=== PATIENT | female | born 2005 | race Two or more races ===

== ENCOUNTER → 2025-03-07 | Outpatient (REF) | payer OTHER | LOC: M PLALAB 13:46 | PROVIDERS: ATTEND Obstetrics & Gynecology | DX: Z53.9 Procedure and treatment not carried out, unspecified reason (principal) ==

== ENCOUNTER → 2025-03-08 | Outpatient (CLI) | payer OTHER ==
[2025-03-08 13:45] LABS: PLATELET COUNT, AUTOMATED 212 10^3/uL (150-450)
[2025-03-08 14:19] LABS: GLUCOSE CHALLENGE TEST 1 HOUR 90 MG/DL (LESS THAN 140)
[2025-03-08 14:48] LABS: HIV 1&2 SCREEN NEGATIVE (NEGATIVE)
[2025-03-08 14:56] LABS: HEPATITIS C VIRUS ABY INDEX 0.04 INDEX (<0.8)
[2025-03-08 15:02] LABS: Trichomonas vaginalis (AMP) NOT DETECTED (NEGATIVE)
[2025-03-08 15:26] LABS: GC DNA AMPLIFICATION NEGATIVE (NEGATIVE)
== END ==
LOC: M PLALAB 10:43
PROVIDERS: ATTEND Advanced Practice Midwife
DX: Z34.83 Encounter for supervision of other normal pregnancy, third trimester (principal)

== ENCOUNTER → 2025-04-19 | Outpatient (REF) | payer OTHER | LOC: M SFHCWAGY 15:02 | PROVIDERS: ATTEND Nurse Practitioner Family | DX: Z34.93 Encounter for supervision of normal pregnancy, unspecified, third trimester (principal); Z3A.36 36 weeks gestation of pregnancy ==

== ENCOUNTER 2025-05-12 21:16 | Outpatient (CLI) | payer OTHER ==
[2025-05-12 21:38] VITALS: BP 103/64
[2025-05-12] MEDS ORDERED: PRENTAB9 PO (22:12)
[2025-05-12] MEDS ORDERED: HOME MED LIST COMPLETE! XX SCH (22:15)
== END 2025-05-13 00:15 | disposition home or self-care (01) ==
LOC: M LDO 21:16
PROVIDERS: ATTEND Advanced Practice Midwife
DX: O47.1 False labor at or after 37 completed weeks of gestation (principal); Z3A.39 39 weeks gestation of pregnancy
CPT/HCPCS: 59025; G0463

== ENCOUNTER 2025-05-13 07:30 | Inpatient (IN) | payer OTHER ==
[2025-05-13] VITALS (38 sets, daily range): BP systolic 93–134; BP diastolic 53–82
[~2025-05-13] VITALS: Ht 162.6 cm; Wt 70.4 kg
[~2025-05-13 07:30] MED LIST: PRENTAB9 PO
[2025-05-13] MEDS ORDERED: LIDOCAINE 1% MDV 20 ML VIAL INFIL PRN (09:00)
[2025-05-13] MEDS ORDERED: OXYTOCIN INJ 10UNITS/ML 1ML VIAL IM PRN (09:00)
[2025-05-13] MEDS ORDERED: TRANEXAMIC ACID INJection 1,000 MG in NS 100 ML IV PRN (09:00)
[2025-05-13] MEDS ORDERED: METHYLERGONOVINE MALEATE 0.2 MG/ML 1 ML VIAL IM PRN (09:00)
[2025-05-13] MEDS ORDERED: CARBOPROST TROMETHAMINE 250 MCG/ML AMP IM PRN (09:00)
[2025-05-13 09:40] LABS: PLATELET COUNT, AUTOMATED 195 10^3/uL (150-450)
[2025-05-13] MEDS: BUTORPHANOL 2 MG/ML 1 ML VIAL IV ONE (10:44)
[2025-05-13 10:46] LABS: HEPATITIS C VIRUS ABY INDEX < 0.02 INDEX (<0.8)
[2025-05-13] MEDS: LR 1,000 ML IV SCH (10:46)
[2025-05-13 11:03] LABS: HIV 1&2 SCREEN NEGATIVE (NEGATIVE)
[2025-05-13] MEDS: OXYTOCIN DRIP 30 UNITS in IV 1 EA IV SCH ×2 (13:57→21:35)
[2025-05-13] MEDS ORDERED: NALOXONE INJ 0.4 MG/1 ML VIAL IV PRN (14:50)
[2025-05-13] MEDS ORDERED: EPIDURAL/PCA KEYS XX PRN (14:50)
[2025-05-13] MEDS ORDERED: diphenhydrAMINE 50 MG/ML VIAL IV PRN (14:50)
[2025-05-13] MEDS ORDERED: ONDANSETRON 4MG/2ML VIAL IV PRN ×2 (14:50→21:35)
[2025-05-13] MEDS: FENTANYL/ROPIVACAINE/NACL BAG 100 ML EPIDURAL SCH (15:22)
[2025-05-13] MEDS: LR 500 ML IV PRN (19:34)
[2025-05-13] MEDS: OXYTOCIN DRIP 30 UNITS in IV 1 EA IV PRN (21:12)
[2025-05-13] MEDS ORDERED: ACETAMINOPHEN 500 MG TAB PO PRN (21:35)
[2025-05-13] MEDS ORDERED: RHOGAM 300MCG (1500IU) INJ IM SCH (21:35)
[2025-05-13] MEDS ORDERED: DOCUSATE SODIUM 100 MG CAPSULE PO PRN (21:35)
[2025-05-13] MEDS ORDERED: LR 1,000 ML IV SCH (21:35)
[2025-05-13] MEDS ORDERED: ANUSOL HC CREAM 30 GM TOP PRN (21:35)
[2025-05-13] MEDS ORDERED: CALCIUM CARBONATE 500 MG CHEW U/D PO PRN (21:35)
[2025-05-13] MEDS ORDERED: ACETAMINOPHEN 325 MG TAB PO PRN (21:35)
[2025-05-13] MEDS: IBUPROFEN 800 MG TAB PO PRN (23:26)
[2025-05-14 00:20] VITALS: BP 105/65; O2SAT 99
[2025-05-14 05:19] VITALS: BP 92/51; O2SAT 96
[2025-05-14] MEDS: PRENATAL VITAMINS CHEWABLE TABLET PO SCH (08:17)
[2025-05-14] MEDS: DIBUCAINE 1% OINTMENT 30 GM TOP PRN (08:17)
[2025-05-14 18:00] VITALS: BP 115/62; O2SAT 99
[2025-05-14] MEDS: IBUPROFEN 600 MG TAB PO PRN (20:21)
[2025-05-15 06:00] VITALS: BP 119/77; O2SAT 96
[2025-05-15] MEDS ORDERED: MEASLES,MUMPS,RUBELLA VACCINE INJ (MMR-II) SC.IMMUN ONE (09:00)
[2025-05-15] MEDS ORDERED: IBUP80TA PO (10:05)
[2025-05-15] MEDS ORDERED: ACET-683 PO (10:05)
== END 2025-05-15 17:55 | disposition home or self-care (01) | DRG 807 ==
LOC: M LDO 07:30 → M LDI 09:25 → M OBS 23:38
PROVIDERS: ADMIT Obstetrics & Gynecology; ATTEND Obstetrics & Gynecology
PROC: 10E0XZZ Delivery of Products of Conception, External Approach (ICD-10-PCS; principal; 2025-05-13)
PROC: 0HQ9XZZ Repair Perineum Skin, External Approach (ICD-10-PCS; 2025-05-13)
DX: O70.0 First degree perineal laceration during delivery (principal); Z37.0 Single live birth; Z3A.39 39 weeks gestation of pregnancy